=== PATIENT | female | born 1995 | race Caucasian/White ===

== ENCOUNTER 2019-09-11 13:37 | Outpatient (CLI) | payer BC, OTHER, SELFPAY ==
[2019-09-11 15:26] LABS: Hematocrit 33.1 % (37.0-47.0); Hemoglobin 11.1 g/dL (12.0-15.0)
[2019-09-11 15:38] LABS: Glucose 1 Hour PP 50gm Dose 110 mg/dL
[2019-09-11 16:19] LABS: HIV 1/2 Ab P24 Ag Result Negative (Negative)
== END 2019-09-11 13:38 | disposition home or self-care (01) ==
PROVIDERS: Visit Provider Obstetrics & Gynecology
DX: Z34.91 Encounter for supervision of normal pregnancy, unspecified, first trimester (principal)
CPT/HCPCS: 36415; 82947; 85014; 85018; 86703; G0432

== ENCOUNTER 2019-09-13 09:43 | Outpatient (CLI) | payer BC, OTHER, SELFPAY ==
[2019-09-13] VITALS (8 sets, daily range): BP systolic 119–129; BP diastolic 67–83; PULSE 68–85
--- NOTE | 2019-09-13 11:36 | PC.NURSE ---
Dr. Ballesteros informed of pt's arrival with c/o headache since Tuesday, took Tylenol once yesterday, had a dizzy episode yesterday and thought she was going to pass out because she had some spots in her vision and then it went dark. No epigastric/RUQ pain. No edema. DTR's 2+ and no clonus. Informed of BP's and reactive NST. doesn't want any lab work. To discharge pt to home and tell her to continue to take Tylenol for her headache.
== END 2019-09-13 12:08 | disposition home or self-care (01) ==
LOC: ANHOBOP 09:50 → ANHOBPP 09:52
PROVIDERS: Visit Provider Obstetrics & Gynecology
DX: O13.9 Gestational [pregnancy-induced] hypertension without significant proteinuria, unspecified trimester (principal); R51 Headache; R42 Dizziness and giddiness
CPT/HCPCS: 59025; 99199

== ENCOUNTER 2019-10-24 15:49 | Outpatient (CLI) | payer BC, OTHER, SELFPAY ==
--- NOTE | 2019-10-24 | ECG_ITS ---
Measurements Intervals [place] Rate: 81 P: 24 OK: 127 QRS: 49 QRSD: 82 T: -2 QT: 367 QTc: 428 Interpretive Statements SINUS RHYTHM BORDERLINE ST-T WAVE ABNORMALITY- INFERIOR LEADS BORDERLINE ECG Electronically Signed On 10-24-2019 16:32:36 CDT by Krishna Cabrera D.O.
== END 2019-10-24 15:50 | disposition home or self-care (01) ==
PROVIDERS: Visit Provider Obstetrics & Gynecology
DX: R00.2 Palpitations (principal); R94.31 Abnormal electrocardiogram [ECG] [EKG]
CPT/HCPCS: 93005

== ENCOUNTER 2019-11-07 12:43 | Inpatient (IN) | payer BC, OTHER, SELFPAY ==
[2019-11-07] VITALS (59 sets, daily range): BP systolic 120–161; BP diastolic 70–120; PULSE 64–102; TEMP 36.8–37.2; O2SAT 95–100; BMI 34.4
--- NOTE | 2019-11-07 12:42 | LDADM ---
This patient, Abbie Noble, was admitted to Labor/Delivery/Recovery 106 on 11/07/19 at 12:43. Plans for labor, pain management and were discussed with patient. Patient/family oriented to hospital policies and general routines including ID bracelet, bed and alarms, visiting hours, pain management, procedures, bathroom and other care routines, personal items, smoking policy, room service/diet and guest tray routines, infant security routines, and visiting hours. Patient/Family are encouraged to report perceived risks to care and to ask questions if they do not understand what they are told or what they should do. See OBIX for further documentation.
[2019-11-07 13:31] LABS: Basophils Percent Auto 0.3 % (0.2-1.2); Eosinophils Percent Auto 0.3 % (0-4.4); Hematocrit 35.6 % (37.0-47.0); Hemoglobin 11.9 g/dL (12.0-15.0); Immature Granulocyte Absolute 0.11 K/mm3 (0.00-0.031); Immature Granulocyte Percent A 0.9 % (0-0.5); Lymphocytes Absolute Auto 1.37 K/mm3 (0.9-3.2); Mean Corpuscular HGB Conc 33.4 g/dl (32-36); Mean Corpuscular Hemoglobin 31.2 pg (26-34); Mean Corpuscular Volume 93.4 fl (80-100); Mean Platelet Volume 9.8 fl (7.4-10.4); Monocytes Absolute Auto 0.6 K/mm3 (0.1-0.6); Monocytes Percent Auto 4.8 % (2.6-8.5); Neutrophils Absolute Auto 10.3 K/mm3 (1.3-6.7); Neutrophils Percent Auto 82.7 % (45.5-73.1); Platelet Count Result 244 k/mm3 (150-375); Red Blood Count 3.81 M/mm3 (4.2-5.4); Red Cell Distribution Width 13.4 % (11.5-14.5); White Blood Count 12.4 K/mm3 (4.5-10.0)
[2019-11-07 13:42] LABS: Alanine Aminotransferase 26 U/L (4-35); Albumin Level 3.5 g/dL (3.5-5.1); Alkaline Phosphatase 159 U/L (38-126); Aspartate Amino Transferase 31 U/L (14-36); Bilirubin,Total 1.2 mg/dL (0.2-1.3); Blood Urea Nitrogen 5 mg/dL (7-17); Calcium 8.6 mg/dL (8.4-10.2); Carbon Dioxide 21 mmol/L (22-30); Chloride 106 mmol/L (98-107); Estimated Glomerular Filt Rate > 60; Glucose 128 mg/dL (65-105); Potassium 3.5 mmol/L (3.4-5.0); Sodium 135 mmol/L (137-145); Uric Acid 4.2 mg/dL (2.5-7.5)
--- NOTE | 2019-11-07 15:11 | PM.IMHP ---
H&P: HPI History of Present Illness Chief complaint: Leaking/ PIH Narrative: Abbie Noble is a 24 yo @ 38.6wks who originally presented to clinic for her routine OB visit. She reported concern for ROM and went to [facility] last night. She was not ruptured, but found to have a mild range SBP of 147. PEC w/u there was negative but was found to be kyle irregularly and was 2cm dilated. Since then, she has been spotting and continues to feel like she is leaking fluid. She feels good movement and irregular back pains. She denies any symptoms of PEC. In clinic, she was found to have mild spotting, no pooling on speculum exam. On SVE, she was 4-5/70/-2. She was found to have mild range BP's on L&D and diagnosed with gestational HTN (PEC w/u negative). Review of Systems Constitutional: Constitutional: Denies chills Eyes: Eyes: Denies blurry vision Cardiovascular: Cardiovascular: Denies chest pain and Denies palpitations Respiratory: Respiratory: Denies cough and Denies dyspnea Gastrointestinal: Gastrointestinal: Denies nausea and Denies vomiting Genitourinary: Genitourinary: Reports vaginal discharge Musculoskeletal: Musculoskeletal: Reports back pain Neurologic: Denies headache(s) Psychiatric: Psychiatric: Denies anxiety [facility] Social History Social History Smoking status: Former smoker Second hand tobacco smoke exposure: Yes Alcohol intake: current Substance use: current Gender identity (if verbalized by the patient): Female Spiritual care concerns: No Meds Home Medications and Allergies Home Medications Medication Instructions Recorded Confirmed Type PNV cmb#95-ferrous fumarate-FA 1 tablet PO DAILY 09/13/19 09/13/19 History [] acetaminophen [Tylenol Extra 1,000 mg PO Q6H PRN 09/13/19 09/13/19 History Strength] Allergies Allergy/AdvReac Type Severity Reaction Status Date / Time No Known Allergies Allergy Verified 09/13/19 17:32 Vital Signs Vital Signs - 24 hr 11/07/19 13:30 11/07/19 13:45 11/07/19 14:00 Pulse Rate 81 102 H 76 Blood Pressure 137/81 148/95 H 133/78 11/07/19 14:15 11/07/19 14:30 11/07/19 14:45 Pulse Rate 84 94 93 Blood Pressure 133/79 136/81 135/84 11/07/19 15:00 Pulse Rate 85 Blood Pressure 144/97 H Exam Const: General: comfortable and no acute distress Resp: Effort & Inspection: normal respiratory effort Cardio: Rate: regular rate : Other: FHT's: 130's/mod siddharth/ + accels/ no decels - category 1 TOCO: irregular contractions SVE: 4-5/70/-2 Membranes: ROM + negative Cephalic Skin: General skin exam: normal color Neuro: Cognition (Neuro): normal cognition Psych: Affect: normal affect H&P: Results Labs Labs: Short CBC 11/07/19 Range/Units 13:17 WBC 12.4 H (4.5-10.0) K/mm3 Hgb 11.9 L (12.0-15.0) g/dL Hct 35.6 L (37.0-47.0) % Plt Count 244 (150-375) k/mm3 BMP 11/07/19 13:17 Sodium 135 L Potassium 3.5 Chloride 106 Carbon Dioxide 21 L BUN 5 L Creatinine 0.40 L Glucose 128 H Calcium 8.6 Liver Function 11/07/19 Range/Units 13:17 Total Bilirubin 1.2 (0.2-1.3) mg/dL AST 31 (14-36) U/L ALT 26 (4-35) U/L Alkaline Phosphatase 159 H (38-126) U/L Albumin 3.5 (3.5-5.1) g/dL Assessment and Plan Assessment and plan (1) Gestational hypertension: Code(s): O13.9 - Gestational [-induced] hypertension without significant proteinuria, unspecified trimester Status: Acute Assessment and Plan: - BP's in normal to mild range; pt asymptomatic and labs stable - Will plan for augmentation of early labor with pitocin per protocol due to new diagnosis of GHTN >37wga - FHT reassuring; continuous monitoring - GBS negative - Anesthesia consult PRN pain
[2019-11-07] MEDS: OXYTOCIN 30 UNITS/NS 500 ML 30 UNITS/500 ML BAG 6 UNITS IV CONT (15:38)
[2019-11-07] MEDS: LACTATED RINGERS 1,000 ML 125 ML IV CONT ×2 (15:38→22:25)
[2019-11-07 15:41] LABS: Amphetamine Screen Urine Negative (Negative); Barbiturate Screen Urine Negative (Negative); Benzodiazepines Screen Urine Negative (Negative); Cannabinoid Screen Urine Positive (Negative); Cocaine Screen Urine Negative (Negative); Methadone Screen Urine Negative (Negative); Opiate Screen Urine Negative (Negative); Phencyclidine Screen Urine Negative (Negative)
--- NOTE | 2019-11-07 23:35 | WPDANESEPPF ---
Anes - Initial Pre Proc Eval Procedure: labor epidural Date/Time: 11/07/19 23:35 Surgeon: Olamide Varela MD Pre Op Diagnosis: Labor pain Pre Op Diagnosis: Leaking/ PIH Patient Data Age: 24 Gender: F Height: 1.52 m Weight: 80 kg Last Vital Signs Temp 36.8 C 11/07/19 18:24 Pulse 76 11/07/19 23:33 BP 133/78 11/07/19 23:33 Pulse Ox 100 11/07/19 23:33 Allergies Allergy/AdvReac Type Severity Reaction Status Date / Time No Known Allergies Allergy Verified 09/13/19 17:32 Home Medications Medication Instructions Recorded Confirmed Type PNV cmb#95-ferrous fumarate-FA 1 tablet PO DAILY 09/13/19 11/07/19 History [] acetaminophen [Tylenol Extra 650 mg PO Q6H PRN 09/13/19 11/07/19 History Strength] Laboratory Tests 11/07/19 11/07/19 11/07/19 13:17 13:17 15:06 WBC 12.4 K/mm3 H K/mm3 (4.5-10.0) RBC 3.81 M/mm3 L M/mm3 (4.2-5.4) Hgb 11.9 g/dL L g/dL (12.0-15.0) Hct 35.6 % L % (37.0-47.0) MCV 93.4 fl fl (80-100) MCH 31.2 pg pg (26-34) MCHC 33.4 g/dl g/dl (32-36) RDW 13.4 % % (11.5-14.5) Plt Count 244 k/mm3 k/mm3 (150-375) MPV 9.8 fl fl (7.4-10.4) Immature Gran % (Auto) 0.9 % H % (0-0.5) Neut % (Auto) 82.7 % H % (45.5-73.1) Lymph % (Auto) 11.0 % L % (18.3-44.2) [place] % (Auto) 4.8 % % (2.6-8.5) Eos % (Auto) 0.3 % % (0-4.4) Baso % (Auto) 0.3 % % (0.2-1.2) Lymph # (Auto) 1.37 K/mm3 K/mm3 (0.9-3.2) [place] # (Auto) 0.6 K/mm3 K/mm3 (0.1-0.6) Eos # (Auto) 0.0 K/mm3 K/mm3 (0-0.3) Baso # (Auto) 0.0 K/mm3 K/mm3 (0.0-0.1) Abs Immat Gran (auto) 0.11 K/mm3 H K/mm3 (0.00-0.031) Absolute Neuts (auto) 10.3 K/mm3 H K/mm3 (1.3-6.7) Absolute Nucleated RBC 0.0 K/mm3 K/mm3 (0.0-0.012) Nucleated RBC % 0.0 % % (0.0-0.2) Sodium 135 mmol/L L mmol/L (137-145) Potassium 3.5 mmol/L mmol/L (3.4-5.0) Chloride 106 mmol/L mmol/L (98-107) Carbon Dioxide 21 mmol/L L mmol/L (22-30) BUN 5 mg/dL L mg/dL (7-17) Creatinine 0.40 mg/dL L mg/dL (0.7-1.0) Estim Creat Clear Calc Not Reportable Estimated GFR > 60 (59 - ) Glucose 128 mg/dL H mg/dL (65-105) Uric Acid 4.2 mg/dL mg/dL (2.5-7.5) Calcium 8.6 mg/dL mg/dL (8.4-10.2) Total Bilirubin 1.2 mg/dL mg/dL (0.2-1.3) AST 31 U/L U/L (14-36) ALT 26 U/L U/L (4-35) Alkaline Phosphatase 159 U/L H U/L (38-126) Total Protein 6.0 g/dL L g/dL (6.3-8.2) Albumin 3.5 g/dL g/dL (3.5-5.1) Urine Opiates Screen Urine Methadone Screen Ur Barbiturates Screen Ur Phencyclidine Scrn Ur Amphetamine Screen U Benzodiazepines Scrn Urine Cocaine Screen U Cannabinoids Screen RPR Pending Blood Type Antibody Screen 11/07/19 11/07/19 15:06 15:06 WBC RBC Hgb Hct MCV MCH MCHC RDW Plt Count MPV Immature Gran % (Auto) Neut % (Auto) Lymph % (Auto) [place] % (Auto) Eos % (Auto) Baso % (Auto) Lymph # (Auto) [place] # (Auto) Eos # (Auto) Baso # (Auto) Abs Immat Gran (auto) Absolute Neuts (auto) Absolute Nucleated RBC Nucleated RBC % Sodium Potassium Chloride Carbon Dioxide BUN Creatinine Estim Creat Clear Calc Estimated GFR Glucose Uric Acid Calcium Total Bilirubin AST
[2019-11-08] VITALS (48 sets, daily range): BP systolic 114–151; BP diastolic 50–100; PULSE 55–120; RESP 12–16; TEMP 36.8; O2SAT 96–100
--- NOTE | 2019-11-08 03:46 | PM.OBPRVD ---
OB - Delivery Note Procedure Delivery date: 11/08/19 Procedure: Patient progressed to complete dilation and pushed for approximately 1.5 hours. She delivered the head over intact perineum. No nuchal cord was palpated and the shoulders and body delivered without complications. The was immediately placed skin to skin. The mouth and nose were bulb suctioned and the infant had spontaneous cry. The umbilical cord was then clamped and cut. A segment of the cord was collected for gases and the remaining cord blood was collected for typing.With Pitocin running and gentle traction on the umbilical cord the placenta delivered without complications. Brisk bleeding was noted and a bimanual massage was performed, where slight lower uterine atony was noted but resolved with massage. The cervix, vagina, and perineum were examined. A right labial laceration was noted and repaired using 3 0 Vicryl in a running fashion. good hemostasis was noted. Sponge, lap, needle, and instrument counts were correct at the end of procedure. Mom and baby were left bonding skin to skin in a stable condition in the birthing suite. events: Induced HTN Induction method: per pitocin protocol Delivery augmentation: rupture of membranes Delivery monitor: external FHT and internal uterine Route of delivery: Laceration description: Labial (right) Delivery repair: vicryl Specimen: No Estimated blood loss (mL): 300 Anesthesia type: Epidural Disposition: floor Baby Date of : 11/08/19 Time of : 03:29 Weeks of gestation at delivery: 39 Infant gender: Female Weight (pounds): 6 Weight (ounces): 7 presentation: vertex position: Right Occiput Anterior Placenta delivery description: Expressed cord vessel description: 3 Vessels score one minute: 8 score five minutes: 9
[2019-11-08] MEDS: OXYTOCIN 30 UNITS/NS 500 ML 30 UNITS/500 ML BAG 125 UNITS IV CONT (03:52)
[2019-11-08] MEDS: ONDANSETRON INJ 4 MG/2 ML VIAL IV PUSH (03:53)
[2019-11-08] MEDS: IBUPROFEN 600 MG TABLET PO ×3 (04:00→21:35)
[2019-11-08] MEDS: WITCH HAZEL 40 PADS 1 PAD TOPICAL (06:35)
[2019-11-08] MEDS: BENZOCAINE 20% AER SPR (*SP) 56 GM CAN 1 SPRAY TOPICAL (06:35)
[2019-11-08] MEDS: ACETAMINOPHEN 325 MG TABLET 650 MG PO ×2 (07:08→21:34)
--- NOTE | 2019-11-08 07:50 | PC.NURSE ---
Consulted with patient, mother reports infant has not fed since . Infant appears to have a tight frenulum. Reviewed infant feeding cues, frequencies, duration of feedings, feeding elimination flow sheet, and signs of adequate intake. Demonstrated stimulation techniques to wake for feeding. Assisted with to breast. Reviewed positioning/alignment in cross cradle, holding breast in U hold and guided asymmetrical latch on. Discussed rational for each. was able to latch correctly. Infant nursed eagerly, with steady draws and occasional swallowing noted. Reviewed signs of a correct latch, effective nursing and suck swallow ratio. Infant was able to maintain latch without discomfort to mother. Nipple care reviewed. Suggested mother stimulate while feeding to keep awake and nursing effectively for increased intake and to assist with maintaining deep latch. Instructed mother to call out for RN assistance if she is unable to latch for feeding or she has discomfort with nursing. Instructed feeding should be initiated three hours from start of last feeding or if feeding cues are noted before. Mother voiced understanding of information shared.
--- NOTE | 2019-11-08 11:28 | PC.NURSE ---
Patient transferred to post room #281 via wheelchair. Support person present. Oriented to unit, room, information board, rooming in, admission packet and security measures. Patient verbalizes understanding.
[2019-11-08 12:45] LABS: Rapid Plasma Reagin Non-Reactive (NonReactive)
--- NOTE | 2019-11-08 12:45 | PC.NURSE ---
Mother called out for assist with feeding. Demonstrated stimulation techniques to wake for feeding. Assisted with to breast. Reviewed positioning/alignment in cross cradle, holding breast in U hold and guided asymmetrical latch on. Discussed rational for each. Several attempts before infant was able to latch correctly. Infant made a few weak draws with no swallowing noted. Infant remains sleepy and is unable to keep nipple in. Attempt for 10+ minutes. Offered and explained the nipple shield. Nipple shield provided to mother due to ineffective latch. Discussed nipple shield precautions and possible complications. Instructions given on application and cleaning of shield. Patient able to return demonstration on proper application of shield. Discussed the need to initiate pumping if continues to nurse with the shield. Patient verbalizes understanding. With shield in place, infant was able to latch, she made not attempt to suckle. Attempt with shield 10+ minutes. Feeding options discussed, mother will supplement. Suggested mother initiate pumping to stimulate milk supply and offer EBM as part of feeding.
--- NOTE | 2019-11-08 13:20 | PC.NURSE ---
Breast pump provided due to ineffective feeding/nipple shield use. Instructions given on breast pump care and usage, pumping schedule, nipple care, and collection and storage of breast milk. Encouraged [id number], breast massage and manual expression to stimulate supply. Assessed patient for correct flange size, placement and draw. Patient verbalizes and demonstrates understanding of instructions.
[2019-11-08] MEDS: MULTIVIT/MIN/PREN/FOL AC/IRON TABLET 1 TAB PO (16:16)
[2019-11-09 05:34] LABS: Hematocrit 32.4 % (37.0-47.0); Hemoglobin 10.9 g/dL (12.0-15.0)
[2019-11-09 07:50] VITALS: BP 122/81; PULSE 87; RESP 16; TEMP 37.1; O2SAT 99
[2019-11-09] MEDS: IBUPROFEN 600 MG TABLET PO (08:15)
[2019-11-09] MEDS: MULTIVIT/MIN/PREN/FOL AC/IRON TABLET 1 TAB PO (08:15)
--- NOTE | 2019-11-09 10:15 | WPDANLDPN2 ---
Anes-Prog Note L&D Date/Time: 11/09/19 10:15 Comfortable throughout: labor Neuraxial method: epidural Epidural/Spinal procedure site: clean & non-tender Neuro status: Neuro function grossly intact. Cardiovascular status: normal Respiratory status: normal Airway patency: baseline Mental status: baseline Post-Op hydration status: normal Vital Signs: Last Vital Signs Temp 98.8 F 11/09/19 07:50 Pulse 87 11/09/19 07:50 Resp 16 11/09/19 07:50 BP 122/81 11/09/19 07:50 Pulse Ox 99 11/09/19 07:50 Post-procedural complaints: none Patient feedback: Patient satisfied with anesthetic care.
--- NOTE | 2019-11-09 10:45 | PC.NURSE ---
Mother called out for assist with feeding after infant frenulectomy. Mother reports is latching, she is on and off during feedings, she has some tenderness during feedings. Mother has not used the nipple shield since last evening. Reviewed feeding cues, frequencies, duration of feedings, feeding elimination flow sheet, and signs of adequate intake. Demonstrated stimulation techniques to wake for feeding. Assisted with to breast. Demonstrated self expression, mother can freely express large amounts of colostrum. Reviewed positioning/alignment in cross cradle, holding breast in U hold and guided asymmetrical latch on. Discussed rational for each. Several attempts before infant was able to latch correctly. Infant nursed eagerly, with steady draws and frequent swallowing noted. Reviewed signs of a correct latch, effective nursing and suck swallow ratio. would pull back during feedings. Advised to give slight resistance to keep at breast. Demonstrated how to adjust latch more deeply while feeding. Advised mother if she has pain or is unable to latch to try latch with shield, and attempt to removed shield after several minutes of feeding and latch without. Mother is wishing for discharge to day. Suggested to stimulate while feeding to keep infant awake and nursing effectively for increased intake and to assist with maintaining deep latch. Infant was able to maintain latch without discomfort to mother. Nipple care reviewed. Mother verbalizes she is able to independently latch infant with appropriate positioning/alignment. She denies any nipple discomfort, is feeding as required and waking infant to feed if needed. Infant has had several as required effective feedings in the past 24 hours, and is currently meeting outcomes for weight, output, jaundice and feeding frequencies. Mother states she feels confident to continue effective at home. Reviewed transition to breast milk, signs of adequate intake, and engorgement/relief. Instructed to call ICP if intake/output less than required. Reviewed regular medications mother is taking. Information provided per [facility]. Reviewed community resources on the [employer] website and in the Mom/Baby guide. Information on outpatient services provided. Mother has no further questions at this time.
--- NOTE | 2019-11-09 12:25 | PM.OBPNVD ---
OB - PN: Subj Subjective Date/time seen: 11/09/19 12:25 Interval history: 24yo s/p on 11/07. Patient comments: no complaints and pain well controlled baby status: doing well and nursing well feeding status: exclusively breast feeding Narrative: Doing well, pain is well controlled. Lochia is decreasing. OB - PN: Obj Data Labs CBC & Chem 7: 11/09/19 04:21 11/07/19 13:17 Labs: Laboratory Results - last 24 hr 11/07/19 11/07/19 11/07/19 13:17 13:17 15:06 WBC 12.4 H RBC 3.81 L Hgb 11.9 L Hct 35.6 L MCV 93.4 MCH 31.2 MCHC 33.4 RDW 13.4 Plt Count 244 MPV 9.8 Immature Gran % (Auto) 0.9 H Neut % (Auto) 82.7 H Lymph % (Auto) 11.0 L [place] % (Auto) 4.8 Eos % (Auto) 0.3 Baso % (Auto) 0.3 Lymph # (Auto) 1.37 [place] # (Auto) 0.6 Eos # (Auto) 0.0 Baso # (Auto) 0.0 Abs Immat Gran (auto) 0.11 H Absolute Neuts (auto) 10.3 H Absolute Nucleated RBC 0.0 Nucleated RBC % 0.0 Sodium 135 L Potassium 3.5 Chloride 106 Carbon Dioxide 21 L BUN 5 L Creatinine 0.40 L Estimated GFR > 60 Glucose 128 H Uric Acid 4.2 Calcium 8.6 Total Bilirubin 1.2 AST 31 ALT 26 Alkaline Phosphatase 159 H Total Protein 6.0 L Albumin 3.5 RPR Non-reactive 11/09/19 04:21 WBC RBC Hgb 10.9 L Hct 32.4 L MCV MCH MCHC RDW Plt Count MPV Immature Gran % (Auto) Neut % (Auto) Lymph % (Auto) [place] % (Auto) Eos % (Auto) Baso % (Auto) Lymph # (Auto) [place] # (Auto) Eos # (Auto) Baso # (Auto) Abs Immat Gran (auto) Absolute Neuts (auto) Absolute Nucleated RBC Nucleated RBC % Sodium Potassium Chloride Carbon Dioxide BUN Creatinine Estimated GFR Glucose Uric Acid Calcium Total Bilirubin AST ALT Alkaline Phosphatase Total Protein Albumin RPR OB - PN A/P Assessment and Plan (1) (normal spontaneous vaginal delivery): Code(s): O80 - Encounter for full-term uncomplicated delivery Status: Acute Assessment and Plan: Routine care Pain management Ok for DC home today (2) Gestational hypertension: Code(s): O13.9 - Gestational [-induced] hypertension without significant proteinuria, unspecified trimester Status: Acute Assessment and Plan: BPs WNL Time Spent With Patient Time: Total time spent is greater than 50% in coordination of care (as documented) at patient's floor/unit and/or counseling patient: Review of Systems Cardiovascular: Cardiovascular: Reports no additional cardiovascular complaints Respiratory: Respiratory: Reports no additional respiratory complaints Gastrointestinal: Gastrointestinal: Reports no additional gastrointestinal complaints Genitourinary: Genitourinary: Reports no additional female genitourinary complaints Neurologic: Reports system reviewed and no additional complaints, except as documented Exam Const: General: comfortable, no acute distress, alert and awake Orientation/consciousness: patient oriented x3 Resp: Effort & Inspection: normal respiratory effort Auscultation: clear to auscultation bilaterally Cardio: Rate: regular rate GI: Other: soft, nontender, nondistended. Fundus firm. Psych: Appearance: grossly normal Mental Status: mental status grossly normal Affect: normal affect Attitude: cooperative Judgement: Good judgement present (Psych)
--- NOTE | 2019-11-09 12:27 | PM.OBDSVD ---
DS: Admitting Diagnosis Admitting Diagnosis Admitting Diagnosis: Gestational [-induced] hypertension without significant proteinuria, unspecified trimester DS: Discharge Diagnosis Discharge Diagnosis (1) (normal spontaneous vaginal delivery): Code(s): O80 - Encounter for full-term uncomplicated delivery Status: Acute Assessment and Plan: Routine care Pain management Ok for DC home today (2) Gestational hypertension: Code(s): O13.9 - Gestational [-induced] hypertension without significant proteinuria, unspecified trimester Status: Acute Assessment and Plan: BPs WNL OB - DS: Summary OB Procedures : None OB Procedures Intrapartum: Spontaneous Vag Delivery OB Procedures: : None Peripartum Data complications: none Status at Discharge Functional status at discharge: independent ambulation Overall status at discharge: patient is progressing back to baseline Time Spent with Patient Time attestation: Total time spent providing and/or coordinating discharge services: Exam Const: General: comfortable, no acute distress, alert and awake Orientation/consciousness: patient oriented x3 Resp: Effort & Inspection: normal respiratory effort Auscultation: clear to auscultation bilaterally Cardio: Rate: regular rate GI: Other: soft, nontender, nondistended. Fundus firm. Neuro: General: patient oriented x3 Psych: Appearance: grossly normal Mental Status: mental status grossly normal Affect: normal affect Attitude: cooperative Judgement: Good judgement present (Psych) DS: Data Data Completed and Pending Pending studies at discharge: Pending at discharge 11/08/19 03:31 Surgical [PTH] Routine Labs on day of discharge: Labs from last 24 hours 11/09/19 11/07/19 11/07/19 04:21 15:06 13:17 WBC RBC Hgb 10.9 L Hct 32.4 L MCV MCH MCHC RDW Plt Count MPV Immature Gran % (Auto) Neut % (Auto) Lymph % (Auto) [place] % (Auto) Eos % (Auto) Baso % (Auto) Lymph # (Auto) [place] # (Auto) Eos # (Auto) Baso # (Auto) Abs Immat Gran (auto) Absolute Neuts (auto) Absolute Nucleated RBC Nucleated RBC % Sodium 135 L Potassium 3.5 Chloride 106 Carbon Dioxide 21 L BUN 5 L Creatinine 0.40 L Estimated GFR > 60 Glucose 128 H Uric Acid 4.2 Calcium 8.6 Total Bilirubin 1.2 AST 31 ALT 26 Alkaline Phosphatase 159 H Total Protein 6.0 L Albumin 3.5 RPR Non-reactive 11/07/19 13:17 WBC 12.4 H RBC 3.81 L Hgb 11.9 L Hct 35.6 L MCV 93.4 MCH 31.2 MCHC 33.4 RDW 13.4 Plt Count 244 MPV 9.8 Immature Gran % (Auto) 0.9 H Neut % (Auto) 82.7 H Lymph % (Auto) 11.0 L [place] % (Auto) 4.8 Eos % (Auto) 0.3 Baso % (Auto) 0.3 Lymph # (Auto) 1.37 [place] # (Auto) 0.6 Eos # (Auto) 0.0 Baso # (Auto) 0.0 Abs Immat Gran (auto) 0.11 H Absolute Neuts (auto) 10.3 H Absolute Nucleated RBC 0.0 Nucleated RBC % 0.0 Sodium Potassium Chloride Carbon Dioxide BUN Creatinine Estimated GFR Glucose Uric Acid Calcium Total Bilirubin AST ALT Alkaline Phosphatase Total Protein Albumin RPR Discharge Plan Discharge Attending physician on discharge: Olamide Varela Discharging Clinician: Radha Corcoran Patient Disposition: Home, Self-Care Activity: may shower, no straining, as tolerated and pelvic rest Diet: regular Patient Instructions: Antibiotic Form Stand Alone Forms: General Discharge Information Follow-up/Referrals: Olamide Varela MD [Physician] - Discharge Medications: New docusate sodium 100 mg Capsule 100 mg PO BID PRN (Reason: Constipation) Qty: 60 RF: 0 ibuprofen 600 mg Tablet 600 mg PO Q6H PRN (Reason: Cramping) Qty: 90 RF: 0 Continued acetaminophen [Tylenol Extra Strength] 500 mg Tablet 650 mg PO Q6H PRN (Reason:
--- NOTE | 2019-11-09 15:12 | PCCCNOTE ---
Social Service Consult: Met with pt. today regarding concerns of THC use during . Pt. reports she lives at home with JUAN Loredo. This is pt.'s first baby. Pt. has all necessary supplies including a car seat, crib, clothing, and bottles. Resources provided with pt. stating she plans to utilize WIC and healthy families. Pt.'s family is supportive. Pt. reports marijuana use during , denies any other substance use. Due to mother and baby tested positive for THC an online [employer] report was made reference ID: [id number]. Received emailed confirmation that online report # [id number] was received and at this time [employer] will not be taking a report. Pt. denies any further needs. Pt. plans to discharge today.
== END 2019-11-09 14:09 | disposition home or self-care (01) | DRG 807 ==
LOC: ANHOBOP 13:06 → ANHLDR 13:08 → ANHOBOP 14:36 → ANHLDR 15:07 → ANHOB2 11-08 09:48 → ANHLDR 11-12 15:37 → ANHOB2 11-12 15:37
PROVIDERS: Admitting Provider Obstetrics & Gynecology; Visit Provider Obstetrics & Gynecology
DX: O13.4 Gestational [pregnancy-induced] hypertension without significant proteinuria, complicating childbirth (principal); Z37.0 Single live birth; Z3A.38 38 weeks gestation of pregnancy; O99.214 Obesity complicating childbirth; E66.9 Obesity, unspecified; O72.1 Other immediate postpartum hemorrhage; O70.0 First degree perineal laceration during delivery; O99.344 Other mental disorders complicating childbirth; F41.9 Anxiety disorder, unspecified
CPT/HCPCS: 36415; 80053; 80307; 84550; 85014; 85018; 85025; 86592; 86850; 86900; 86901; 88307; A9270; J2405; J2590; J3010; J7120